=== PATIENT | female | born 1985 | race Caucasian/White ===

== ENCOUNTER 2018-11-14 20:19 | Inpatient (IN) | payer BC ==
[~2018-11-14] VITALS: Ht 175.3 cm; Wt 0.4 kg
[~2018-11-14 20:19] MED LIST: FAMO20 PO
[2018-11-14] MEDS ORDERED: LAMO25 PO (20:48)
[2018-11-14] MEDS ORDERED: ZOLP5 PO (20:48)
[2018-11-14] MEDS ORDERED: Verotin-Gr Cap1 EACH PO (20:48)
[2018-11-14 21:07] LABS: BASOPHILS ABSOLUTE AUTO 0.05 K/mm3 (0.00-0.23); BASOPHILS PERCENT AUTO 1 % (0-2); EOSINOPHILS ABSOLUTE AUTO 0.16 K/mm3 (0.00-0.68); EOSINOPHILS PERCENT AUTO 2 % (0-6); Hematocrit 38.1 % (33.0-51.0); Hemoglobin 12.7 g/dL (11.5-16.0); IMMATURE GRAN ABSOLUTE AUTO 0.09 K/mm3 (0.00-0.10); IMMATURE GRAN PERCENT AUTO 1 % (0-1); LYMPHOCYTES ABSOLUTE AUTO 1.94 K/mm3 (0.84-5.20); LYMPHOCYTES PERCENT AUTO 19 % (21-46); MONOCYTES ABSOLUTE AUTO 0.83 K/mm3 (0.16-1.47); MONOCYTES PERCENT AUTO 8 % (4-13); Mean Corpuscular HGB Conc 33.3 g/dL (31.5-36.5); Mean Corpuscular Volume 90 fL (80-100); NEUTROPHILS ABSOLUTE AUTO 7.31 K/mm3 (1.96-9.15); NEUTROPHILS PERCENT AUTO 70 % (41-73); Platelet Count 226 K/mm3 (150-400); RDW Coefficient Variation 12.8 % (11.7-14.2); RDW Standard Deviation 41.3 fL (35.1-46.3); Red Blood Cell Count 4.24 M/mm3 (3.80-5.20); White Blood Cell Count 10.38 K/mm3 (4.00-11.30)
--- NOTE | 2018-11-15 11:30 | NUR ---
Pt resting in bed, at bedside. NB asleep in open crib. Denies needs at this time.
[2018-11-15 13:16] LABS: BASOPHILS ABSOLUTE AUTO 0.06 K/mm3 (0.00-0.23); BASOPHILS PERCENT AUTO 0 % (0-2); EOSINOPHILS ABSOLUTE AUTO 0.04 K/mm3 (0.00-0.68); EOSINOPHILS PERCENT AUTO 0 % (0-6); Hematocrit 34.2 % (33.0-51.0); Hemoglobin 11.3 g/dL (11.5-16.0); IMMATURE GRAN PERCENT AUTO 1 % (0-1); LYMPHOCYTES ABSOLUTE AUTO 1.61 K/mm3 (0.84-5.20); LYMPHOCYTES PERCENT AUTO 11 % (21-46); MONOCYTES ABSOLUTE AUTO 0.94 K/mm3 (0.16-1.47); MONOCYTES PERCENT AUTO 7 % (4-13); Mean Corpuscular HGB 30.4 pg (26.0-34.0); Mean Corpuscular Volume 92 fL (80-100); NEUTROPHILS ABSOLUTE AUTO 11.73 K/mm3 (1.96-9.15); NEUTROPHILS PERCENT AUTO 81 % (41-73); Platelet Count 204 K/mm3 (150-400); RDW Coefficient Variation 12.8 % (11.7-14.2); RDW Standard Deviation 42.6 fL (35.1-46.3); Red Blood Cell Count 3.72 M/mm3 (3.80-5.20); White Blood Cell Count 14.48 K/mm3 (4.00-11.30)
--- NOTE | 2018-11-15 16:00 | NUR ---
Printed d/c instructions reviewed by experienced mother. Denies questions at this time.
--- NOTE | 2018-11-16 03:02 | NUR ---
PATIENT DENIES ANY WUESTIONS OR CONCERNS AT THIS TIME. BANDS WERE MATCHED WITH NB BY RN.
== END 2018-11-16 03:10 | disposition home or self-care (01) | DRG 807 ==
LOC: OBS 20:19 → BC 20:20 → OBS 20:35 → BC 20:37
PROVIDERS: ADMIT Advanced Practice Midwife
PROC: 10E0XZZ Delivery of Products of Conception, External Approach (ICD-10-PCS; principal; 2018-11-15)
PROC: 0HQ9XZZ Repair Perineum Skin, External Approach (ICD-10-PCS; 2018-11-15)
PROC: 3E0R3BZ Introduction of Anesthetic Agent into Spinal Canal, Percutaneous Approach (ICD-10-PCS; 2018-11-15)
DX: O42.02 Full-term premature rupture of membranes, onset of labor within 24 hours of rupture (principal); Z37.0 Single live birth; O70.0 First degree perineal laceration during delivery; Z3A.39 39 weeks gestation of pregnancy
CPT/HCPCS: 36415; 51702; 85025; J1885; J2210; J2590; J3010; J7120

== ENCOUNTER 2019-11-28 15:21 | Emergency (ER) | payer BC ==
[~2019-11-28] VITALS: Ht 175.3 cm; Wt 79.4 kg
[~2019-11-28 15:21] MED LIST changes: +LAMO25 PO; +Verotin-Gr Cap1 EACH PO; +ZOLP5 PO
[2019-11-28] MEDS ORDERED: Amox Tr-K Clv1 EAC2 PO (15:43)
[2019-11-28] MEDS ORDERED: DESVENLAFAXINE100 M3 PO (15:43)
[2019-11-28] MEDS ORDERED: Sulfamethoxazo1 EAC4 PO (15:43)
[2019-11-28] MEDS ORDERED: LAMICTAL200 MG PO (15:44)
[2019-11-28] MEDS ORDERED: BUPROPION HCL (15:44)
[2019-11-28 16:51] LABS: BASOPHILS ABSOLUTE AUTO 0.06 K/mm3 (0.00-0.23); BASOPHILS PERCENT AUTO 1 % (0-2); EOSINOPHILS PERCENT AUTO 0 % (0-6); Hematocrit 48.4 % (33.0-51.0); IMMATURE GRAN ABSOLUTE AUTO 0.02 K/mm3 (0.00-0.10); IMMATURE GRAN PERCENT AUTO 0 % (0-1); LYMPHOCYTES ABSOLUTE AUTO 2.15 K/mm3 (0.84-5.20); LYMPHOCYTES PERCENT AUTO 23 % (21-46); MONOCYTES ABSOLUTE AUTO 0.58 K/mm3 (0.16-1.47); MONOCYTES PERCENT AUTO 6 % (4-13); Mean Corpuscular HGB 30.3 pg (26.0-34.0); Mean Corpuscular HGB Conc 33.1 g/dL (31.5-36.5); Mean Corpuscular Volume 92 fL (80-100); Mean Platelet Volume 8.8 fL (9.1-12.4); NEUTROPHILS PERCENT AUTO 70 % (41-73); Platelet Count 317 K/mm3 (150-400); Red Blood Cell Count 5.28 M/mm3 (3.80-5.20); White Blood Cell Count 9.41 K/mm3 (4.00-11.30)
[2019-11-28 17:14] LABS: Alanine Aminotransfer (ALT/SGP 51 U/L (12-78); Albumin, Blood 4.4 g/dL (3.4-5.0); Albumin/Globulin Ratio 1.1 (0.8-1.8); Alk Phos 95 U/L (50-136); Anion Gap 4 mmol/L (6-16); Aspartate Aminotrans (AST/SGOT 29 U/L (12-37); Bilirubin, Total 0.4 mg/dL (0.1-1.0); Blood Urea Nitrogen 10 mg/dL (8-24); Bun/Creatinine Ratio 11.2 (12.0-20.0); CO2, Blood 27 mmol/L (21-32); Calcium, Blood 9.6 mg/dL (8.5-10.1); Chloride, Blood 105 mmol/L (98-108); Globulin, Blood 3.9 g/dL (2.2-4.0); Glomerular Filtration Rate >60 (60-); Glucose, Blood 98 mg/dL (70-99); Potassium, Blood 4.4 mmol/L (3.5-5.5); Sodium, Blood 136 mmol/L (136-145); Total Protein, Blood 8.3 g/dL (6.4-8.2)
== END 2019-11-28 21:00 | disposition home or self-care (01) ==
LOC: ER 15:21
PROVIDERS: Physician Assistant
DX: L03.213 Periorbital cellulitis (principal)
CPT/HCPCS: 36415; 70487; 80053; 85025; 96365-59; 99284-25; J0696; Q9967

== ENCOUNTER → 2020-02-08 | Outpatient (CLI) | payer BC ==
[~2020-02-08] MED LIST changes: +Amox Tr-K Clv1 EAC2 PO; +BUPROPION HCL; +DESVENLAFAXINE100 M3 PO; +LAMICTAL200 MG PO; +Sulfamethoxazo1 EAC4 PO
== END | disposition home or self-care (01) ==
LOC: LAB EV 13:40 → LAB SHORT 13:40
DX: N76.4 Abscess of vulva (principal)
CPT/HCPCS: 87070; 87075; 87077; 87147; 87186; 87205

== ENCOUNTER 2022-12-22 06:48 | Day surgery (SDC) | payer BC, OTHER ==
[~2022-12-22] VITALS: Ht 175.3 cm; Wt 104.6 kg
[2022-12-22] MEDS ORDERED: Lithium Carbon450 MG PO (07:21)
[2022-12-22] MEDS ORDERED: ABILIFY MYCITE2 M2 PO (07:21)
[2022-12-22] MEDS ORDERED: Budeprion Xl300 MG PO (07:22)
[2022-12-22] MEDS ORDERED: ZOLP10 PO (07:22)
[2022-12-22] MEDS ORDERED: LAMO100 PO (07:22)
[2022-12-22] MEDS ORDERED: LEVOTHYROXINE75 MC9 PO (07:22)
--- NOTE | 2022-12-22 08:34 | NUR ---
12/22/22 0834 Hector Martell ROPIVACAINE 0.5% 30 MLS MIXED & VERIFIED W/ EPI 0.10 ML (1MG/ML) PER ORDER TO MAKE ROPIVACAINE 0.5% 1:200,000 FOR INJECTION AT OPSITE BY DR LUGO.
== END 2022-12-22 09:51 | disposition home or self-care (01) ==
LOC: ORSCSDS 06:48
PROVIDERS: Obstetrics & Gynecology
PROC: 0UT74ZZ Resection of Bilateral Fallopian Tubes, Percutaneous Endoscopic Approach (ICD-10-PCS; principal; 2022-12-22 08:00)
PROC: 0UPD7HZ Removal of Contraceptive Device from Uterus and Cervix, Via Natural or Artificial Opening (ICD-10-PCS; principal; 2022-12-22 08:00)
DX: Z30.2 Encounter for sterilization (principal); Z30.432 Encounter for removal of intrauterine contraceptive device; N80.30 Endometriosis of pelvic peritoneum, unspecified; E03.9 Hypothyroidism, unspecified; F31.9 Bipolar disorder, unspecified; Z79.899 Other long term (current) drug therapy; E66.9 Obesity, unspecified; Z68.34 Body mass index [BMI] 34.0-34.9, adult
CPT/HCPCS: 88302; J0171; J0690; J1100; J1885; J2250; J2405; J2704; J2795; J3010; J7120